=== PATIENT | male | born 1990 | race Asian ===

== ENCOUNTER 2016-11-20 08:43 | Emergency (ER) | payer SELFPAY ==
[2016-11-20] MEDS ORDERED: MORPHINE 4 MG/ML SYR ONE (08:58)
[2016-11-20] MEDS ORDERED: SODIUM CHLORIDE 0.9% 1,000 ML ONE (08:58)
[2016-11-20] MEDS ORDERED: ONDANSETRON 4 MG VIAL ONE (08:58)
[2016-11-20] MEDS ORDERED: ONDANSETRON ODT 4 MG TAB ONE (10:19)
== END 2016-11-20 11:26 | disposition home or self-care (01) ==
LOC: ER 08:43
DX: R11.2 Nausea with vomiting, unspecified (principal); F17.210 Nicotine dependence, cigarettes, uncomplicated
CPT/HCPCS: 36415; 74022; 80053; 81003; 83690; 85025; 86677; 87804; 87880; 96361; 96374; 96375; 96376